=== PATIENT | female | born 1985 ===

== ENCOUNTER → 2016-07-17 | Outpatient (CLI) | payer BC | END | disposition home or self-care (01) | LOC: C.PAPS 18:09 | PROVIDERS: ATTEND Physician Assistant | DX: Z01.419 Encounter for gynecological examination (general) (routine) without abnormal findings (principal) ==

== ENCOUNTER → 2017-03-31 | Outpatient (CLI) | payer OTHER | END | disposition home or self-care (01) | LOC: C.LABSPEC 14:12 | PROVIDERS: ATTEND Physician Assistant | DX: N92.6 Irregular menstruation, unspecified (principal) ==